=== PATIENT | female | born 1990 | race Hispanic/Latino ===

== ENCOUNTER 2018-09-05 21:49 | Inpatient (IN) | payer OTHER ==
[2018-09-05 21:59] VITALS: BMI 20.5
--- NOTE | 2018-09-05 22:09 | ED PDOC ---
Arrival/HPI - General Time Seen by Provider: 09/05/18 21:51 Historian: Patient - History of Present Illness Narrative History of Present Illness (Text): 28 year old female, whose past medical history includes depression, who presents to the ED transferred from [facility] for suicidal ideation/psychiatric admission. Patient was medically cleared at previous institution and accepted for psychiatric admission by psychiatrist airline reservationist. Patient denies any HI, hallucinations, substance abuse, fever, chills, chest pain, shortness of breath, nausea, vomiting, diarrhea, urinary symptoms, back pain, neck pain, headache, dizziness, or any other somatic complaints. Symptom Onset: Gradual Symptom Course: Unchanged Activities at Onset: Light Context: Other (transferred) Past Medical History - Provider Review Nursing Documentation Reviewed: Yes - Psychiatric Hx Psychophysiologic Disorder: Yes Hx Anxiety: Yes Hx Depression: Yes Hx Substance Use: No Family/Social History - Physician Review Nursing Documentation Reviewed: Yes Family/Social History: Unknown Family HX Smoking Status: Never Smoked Hx Alcohol Use: Yes Frequency of alcohol use: Socially Hx Substance Use: No Allergies/Home Meds Allergies/Adverse Reactions: Allergies No Known Allergies Allergy (Verified 09/05/18 22:43) Home Medications: Home Meds Medication Instructions Recorded Confirmed No Known Home Med 09/05/18 09/05/18 Review of Systems - Physician Review All systems were reviewed & negative as marked: Yes - Review of Systems Constitutional: Normal. absent: Fevers Eyes: Normal. absent: Vision Changes ENT: Normal. absent: Sore Throat, Sinus Congestion Respiratory: Normal. absent: SOB, Cough Cardiovascular: Normal. absent: Chest Pain Gastrointestinal: Normal. absent: Abdominal Pain, Diarrhea, Nausea, Vomiting Genitourinary Female: Normal. absent: Dysuria, Frequency, Hematuria, Urine Output Changes Musculoskeletal: Normal. absent: Back Pain, Neck Pain Skin: Normal. absent: Rash Neurological: Normal. absent: Headache, Dizziness Endocrine: Normal Hemo/Lymphatic: Normal Psychiatric: Depression, Suicidal Ideation Physical Exam Vital Signs Reviewed: Yes Vital Signs Temp Pulse Resp BP Pulse Ox 09/05/18 21:59 98.3 F 77 19 121/71 99 Temperature: Afebrile Blood Pressure: Normal Pulse: Regular Respiratory Rate: Normal Appearance: Positive for: Non-Toxic, Other (Tearful) Pain Distress: None Mental Status: Positive for: Alert and Oriented X 3 - Systems Exam Head: Present: Atraumatic, Normocephalic Pupils: Present: PERRL Extroacular Muscles: Present: EOMI Conjunctiva: Present: Normal Mouth: Present: Moist Mucous Membranes Neck: Present: Normal Range of Motion. No: Meningeal Signs Respiratory/Chest: Present: Clear to Auscultation, Good Air Exchange. No: Respiratory Distress, Accessory Muscle Use Cardiovascular: Present: Regular Rate and Rhythm, Normal S1, S2 Abdomen: Present: Normal Bowel Sounds. No: Tenderness, Distention, Peritoneal Signs Back: Present: Normal Inspection. No: CVA Tenderness Upper Extremity: Present: Normal Inspection, Normal ROM, NORMAL PULSES, Neurovascularly Intact, Capillary Refill < 2s. No: Cyanosis, Edema, Temperature Abnormalties Lower Extremity: Present: Normal Inspection, NORMAL PULSES, Normal ROM, Neurovascularly Intact, Capillary Refill < 2 s. No: Edema, Temperature Abnormalties Neurological: Present: GCS=15, CN II-XII Intact, Speech Normal, Motor Func Grossly Intact, Normal Sensory Function, Gait Normal Skin: Present: Warm, Dry, Normal Color. No: Rashes Psychiatric: Present: Alert, Oriented x 3, Depressed Mood, Suicidal Ideation Medical Decision Making ED Course and Treatment: 09/05/18 22:07 Reviewed diagnostic testing, CXR, EKG sent from [facility]. Pt has no somatic complaints. Physical exam normal. Vitals stable. Patient is medically cleared for psychiatric admission. Placed on 1:1 observation in ED. - Scribe Statement The provider has reviewed the documentation as recorded by the Kike Mcdaniel Provider Scribe Attestation: All medical record entries made by the Scribe were at my direction and personally dictated by me. I have reviewed the chart and agree that the record accurately reflects my personal performance of the history, physical exam, medical decision making, and the department course for this patient. I have also personally directed, reviewed, and agree with the discharge instructions and disposition. Disposition/Present on Arrival - Present on Arrival Any Indicators Present on Arrival: No History of DVT/PE: No History of Uncontrolled Diabetes: No Urinary Catheter: No History of Decub. Ulcer: No History Surgical Site Infection Following: None - Disposition Have Diagnosis and Disposition been Completed?: Yes Diagnosis: MDD (major depressive disorder) Disposition: HOSPITALIZED Disposition Time: 22:10 Patient Plan: Admission Patient Problems: Current Active Problems Problem Status Onset MDD (major depressive disorder) Acute Opioid abuse, in remission Acute Condition: STABLE
[2018-09-05] MEDS ORDERED: Magnesium Hydroxide Susp 30 ml UD PO PRN (23:12)
[2018-09-05] MEDS ORDERED: Alum-Mag Hydrox-Simethicone Susp (30 mL) PO PRN (23:12)
--- NOTE | 2018-09-05 23:26 | PCM.BM ---
<HenriChristy - Last Filed: 09/05/18 23:23> Treatment Plan Problems - Problems identified on initial assessmt Suicidal Ideation Date Initiated: 09/05/18 Time Initiated: 23:24 Assessment reference: NA Status: Active Hopelessness/Helplessness Date Initiated: 09/05/18 Time Initiated: 23:24 Assessment reference: NA Status: Active Ineffective Coping Date Initiated: 09/05/18 Time Initiated: 23:25 Assessment reference: NA Status: Active Altered Sleep Pattern Date Initiated: 09/05/18 Time Initiated: 23:25 Assessment reference: NA Status: Active Treatment assets and liabiliti Patient Assests: adapts well, cooperative, educated, insightful, motivated, ADL independent, cognitively intact Patient Liabilities: live alone, financial problems - Milieu Protocol Maintain good personal hygiene: every shift Encourage regular showers, every shift Remind patient to perform daily oral care, every shift Assist patient to perform ADL's Maintain personal safety: daily Educate patient to report safety concerns to staff, daily Monitor environment for contraband/sharps Medication safety: Monitor for expected outcome, potential side effects: daily, Assess barriers to learning: daily, Assess readiness for medication education: daily Family Contact Family contact: Family has been contacted by patient <Delma Lopez - Last Filed: 09/06/18 08:41> - Diagnosis (1) MDD (major depressive disorder) Status: Acute Interventions: 09/06/18 08:42 Psychoeducation Psychopharmacology/adjustment of medications as needed/ monitoring possible side effects Evaluate pt on daily basis Compliance with medications and follow up appointments Suicide and homicide risk assessment and prevention Relapse prevention Reduction of symptoms Improve functional status Family involvement As outpatient: cognitive behavioral therapy (2) Opioid abuse, in remission Status: Acute Interventions: 09/06/18 08:42 relapse prevention AA meetings <Mali Rodriges - Last Filed: 09/07/18 11:22> Family Contact Family involvement: Family/SO is involved Family contact: Family has been contacted by patient <Zuleika Rojo - Last Filed: 09/07/18 12:15>
[2018-09-05 23:56] VITALS: O2SAT 97
[2018-09-06 08:19] LABS: GLUCOSE,FASTING 75 mg/dL (65-110); HDL CHOLESTEROL 40 mg/dL (29-60)
[2018-09-06 08:31] LABS: LDL CHOLESTEROL 99 mg/dL (0-129)
--- NOTE | 2018-09-06 14:53 | PCM.PSYCH ---
Initial Psychiatric Evaluation - Initial Psychiatric Evaluation Type of Admission: Voluntary Legal Status: Capacity Chief Complaint (in patient's own words): "I was self-medicating by using hearing, I am sober for past 1-1/2 months, as a result my depression became really bad, my boyfriend brought me to the hospital because I was having bad thoughts..." Patient's Reaction to Hospitalization: Patient was transferred from [facility] for evaluation of depression, possible suicidal ideation with a plan to crash her car. History of Present Illness and Precipitating Events: Patient is 28-year-old female, self-reported history of depression and two psychiatric admissions, two possible suicidal attempts, patient was transferred from [facility] where she presented with her boyfriend for evaluation of depression, possible suicidal ideation with a plan to kill self by crashing her car. Transfer was uneventful, patient requires further evaluation stabilization and observation. Patient was seen today at the treatment team meeting with medical student, patient presented with poor personal hygiene, appears with flat and tearful affect, good ADLs. Patient reported that she had a long history of opioid abuse, she started using hearing at the age of 22, patient had 3 years of sobriety but she relapsed on hearing 1-1/2 years ago, patient reported that for the past 1-1/2 months she is staying sober. As a result patient became more and more depressed, for the past 2 weeks, patient was not able to function, was feeling, hopeless, helpless, worthless, guilty, patient also reported that she had no energy, no motivation, patient reported that she is staying in bed all day long, patient reported prior to come to the hospital her boyfriend was very concerned about her safety because patient had suicidal ideation with a plan to crash her car, "I was not able to drive by myself, I did not trust myself, if nobody would be is there I would probably kill myself." Patient contracted for safety, reported that she feels comfortable, patient reported if she would have suicidal ideation she will reach out for help. Patient reported that she was feeling anxious, for the past 2 weeks she had frequent panic attacks where she would be feeling extremely anxious, difficulty to breathe, mind racing, fear of losing control and going crazy, not panic attacks would last for about 15 to 20 minutes. Patient denies history of being abused, denies any PTSD symptoms, denied generalized anxiety disorder symptoms. Patient had questionable manic/hypomanic episodes where she would be feeling jen y irritable, mind racing, difficulties to stay focus, difficulties to complete the task, lack of sleep, feeling energetic. Patient denies hearing voices, denies seeing things, denies paranoid ideations, patient does not present to be psychotic. Patient smokes about 1 pack a day, counseling provided, patient was receptive, nicotine patch offered. Past psychiatric history: Patient had history of 2 psychiatric admissions in 2010 status post overdose on medications, 2013 patient had suicidal ideation but denied any intent, usually patient stayed in the hospital for 7 to 10 days. Patient reported that she was diagnosed with major depressive disorder, patient was tried on Celexa "I did not like that medication", patient was on Cymbalta, "I was doing relatively fine on Cymbalta". Family history: Patient denied Medical history: Patient denies any medical history besides shoulder pain, for what pt claimed to be on percocet 3-5 days ago. pt denied any recent use of drugs, denied withdrawal symptoms. UDS was positive for opioids. Social history: Patient lives with her boyfriend, in [place], works as a server assistant in [employer]. as per RN report Patient states she is currently on Pr e-trial intervention for possession of drugs. Patient's goal for treatment "to be okay, eventually I would like to start my own family, I want to be clean, to get , kids" Lab Results 09/06/18 07:45: TSH 3rd Generation 0.22 L 09/06/18 07:45: Fasting Glucose 75, Triglycerides 66, Cholesterol 152, LDL Cholesterol Direct 99, HDL Cholesterol 40 Vital Signs Temp Pulse Resp BP Pulse Ox 09/06/18 06:33 97.5 F L 66 14 103/60 09/05/18 23:55 97.9 F 79 18 103/68 97 09/05/18 21:59 98.3 F 77 19 121/71 99 The patient failed the outpatient lower level of care: Yes Current Medications: Active Medications Generic Name Dose Route Start Last Admin Trade Name Freq PRN Reason Stop Dose Admin Acetaminophen 650 mg 09/05/18 23:12 Tylenol 325mg Tab PO Q6H PRN Pain, moderate (4-7) Al Hydrox/Mg Hydrox/Simethicone 30 ml 09/05/18 23:12 Maalox Plus 30 Ml PO DAILY PRN Indigestion / Heartburn Clonazepam 0.5 mg 09/05/18 23:12 Klonopin PO Q8 PRN Anxiety Protocol Magnesium Hydroxide 30 ml 09/05/18 23:12 Milk Of Magnesia PO DAILY PRN Constipation Zaleplon 10 mg 09/05/18 23:12 09/05/18 23:36 Sonata PO 10 mg HS PRN Administration Insomnia Present on Admission - Present on Admission Any Indicators Present on Admission: No History of Uncontrolled Diabetes: No Urinary Catheter: No Decubitus Ulcer Present: No Review of Systems - Review of Systems Systems not reviewed;Unavailable: Acuity of Condition - Constitutional Constitutional: As Per HPI - EENT Eyes: As Per HPI Ears: As Per HPI Nose/Mouth/Throat: As Per HPI - Breasts Breasts: As Per HPI - Cardiovascular Cardiovascular: As Per HPI - Respiratory Respiratory: As Per HPI - Gastrointestinal Gastrointestinal: As Per HPI - Genitourinary Genitourinary: As Per HPI - Reproductive: Female Reproductive:Female: As Per HPI - Menstruation Menstruation: As Per HPI - Musculoskeletal Musculoskeletal: As Per HPI - Integumentary Integumentary: As Per HPI - Neurological Neurological: As Per HPI - Psychiatric Psychiatric: As Per HPI - Endocrine Endocrine: As Per HPI - Hematologic/Lymphatic Hematologic: As Per HPI Past Patient History - Past Psychiatric History Previous Treatment History: Inpatient Prior Professional Help: See HPI Prior Psychiatric Treatment: See HPI At what hospital: See HPI Duration: See HPI Nature of Treatment: See HPI Explanation of prior treatment: See HPI - PSYCHIATRIC Hx Psychophysiologic Disorder: Yes Hx Anxiety: Yes Hx Depression: Yes Hx Substance Use: Yes (heroin) - CARDIAC Hx Cardiac Disorders: No - PULMONARY Hx Respiratory Disorders: No - NEUROLOGICAL Hx Migraine: Yes - HEENT Hx HEENT Problems: No - RENAL Hx Chronic Kidney Disease: No - ENDOCRINE/METABOLIC Hx Endocrine Disorders: No - HEMATOLOGICAL/ONCOLOGICAL Hx Blood Disorders: No - INTEGUMENTARY Hx Dermatological Problems: No - MUSCULOSKELETAL/RHEUMATOLOGICAL Hx Musculoskeletal Disorders: No - GASTROINTESTINAL Hx Gastrointestinal Disorders: No - GENITOURINARY/GYNECOLOGICAL Hx Genitourinary Disorders: No - SURGICAL HISTORY Hx Surgeries: No - ANESTHESIA Hx Anesthesia: No - Medical/Surgical History Reviewed & confirmed: by nv Meds Allergies/Adverse Reactions: Allergies Allergy/AdvReac Type Severity Reaction Status Date / Time No Known Allergies Allergy Verified 09/05/18 22:43 Mental Status Examination - Personal Presentation Personal Presentation: Looks stated age - Affect Affect: Constricted (And tearful), Flat - Motor Activity Motor Activity: Calm - Reliability in Providing Information Reliability in Providing Information: Fair - Speech Speech: Organized - Mood Mood: Depressed, Anxious - Formal Thought Process Formal Thought Process: No Impairment - Obsessions/Compulsions Obsessions: No Compulsions: No - Cognitive Functions Orientation: Person, Place, Situation, Time Sensorium: Alert Attention/Concentration: Easily distracted Estimate of Intelligence: Average Judgement: Intact, as evidence by: Insight regarding need for hospitalization - Risk Risk: Suicidal, Self-mutilation, Diminished functioning - Strength & Assets Inventory Strength & Assets Inventory: Intelligence, Family support, Education, Employment status, Employment history, Skills, Life experience, Cooperative - Limitations Limitations: Other (Suicidal ideation) Psychiatric Physical Exam - Physical Exam Reviewed and confirmed: Emergency Department Physical Exam Results - Vital Signs Recent Vital Signs: Last Vital Signs Temp 97.5 F L 09/06/18 06:33 Pulse 66 09/06/18 06:33 Resp 14 09/06/18 06:33 BP 103/60 09/06/18 06:33 Pulse Ox 97 09/05/18 23:55 - Labs Labs: Laboratory Results - last 24 hr 09/06/18 07:45 Fasting Glucose 75 Triglycerides 66 Cholesterol 152 LDL Cholesterol Direct 99 HDL Cholesterol 40 - EKG Data EKG Interpreted by: ER Physician DSM Plan - DSM 5 DSM 5 Diagnosis: Rule out bipolar spectrum disorder, bipolar type II Rule out panic disorder Rule out panic disorder Opioid use disorder - Recommended/Plan of Treatment Treatment Recommendations and Plan of Treatment: Milieu/structure/supportive therapy SW consultation for discharge plan and social issues Med management Prozac 10 mg for depression anxiety Vistaril 50 mg 3 times a day as needed for anxiety Abilify 2.5 mg at nighttime for mood stabilization Sonata 5 mg as needed for insomnia Family involvement Follow up on labs Will monitor closely Pt was educated about risk/benefits and alternatives of medications, coping strategies (safety plan, suicide prevention), relapse prevention, importance of follow up with psychiatrist and therapist, stay away from drugs/alcohol/smoking Projected ELOS: 7 days Prognosis: Fair Discharge Plan and Discharge Criteria: Patient will pose no imminent danger to self or others - Tobacco Cessation Tobacco Use Status for the last 30 days: Heavy User(>=5 cigs &/or cigars/pipes daily) Tobacco Use Treatment Practical Counseling Provided: Yes Tobacco Use Treatment FDA-Approved Cessation Medication Provided: Yes - Alcohol or Substance Abuse Does the patient have an Alcohol or Substance Abuse Disorder: Yes Initial Psych Certification - Initial Certification I certify that the inpatient psychiatric facility admission was medically necessary for either: Treatment which could reasonbly be expected to improve pt's condition I estimate of hospitalization is necessary for proper treatment of the patient: 7 Unit of Time: Days My plans for post-hospital care for this patient are: AA meetings dual diagnosis program
--- NOTE | 2018-09-07 14:35 | PCM.PYCHPN ---
Psychiatric Progress Note - Psychiatric Progress Note Patient seen today, length of contact: 30min Patient Chief Complaint: "I didn't sleep...' Problems Identified/Issues Discussed: medications/risk/benefits and alternatives, possible opioid withdrawals, coping strategies, aftercare plan. Medical Problems: pt most likely withdrawing from opioids, but denied Diagnostic Results: Lab Results 09/06/18 07:45: RPR Nonreactive 09/06/18 07:45: TSH 3rd Generation 0.22 L 09/06/18 07:45: Fasting Glucose 75, Triglycerides 66, Cholesterol 152, LDL Cholesterol Direct 99, HDL Cholesterol 40 Vital Signs Temp Pulse Resp BP Pulse Ox 09/07/18 06:39 97.7 F 76 16 97/60 L 09/06/18 16:00 78 100/68 09/06/18 06:33 97.5 F L 66 14 103/60 09/05/18 23:55 97.9 F 79 18 103/68 97 09/05/18 21:59 98.3 F 77 19 121/71 99 DSM 5 Symptoms Update: Patient is 28-year-old female, self-reported history of depression and two psychiatric admissions, two possible suicidal attempts, patient was transferred from [facility] where she presented with her boyfriend for evaluation of depression, possible suicidal ideation with a plan to kill self by crashing her car. Transfer was uneventful, patient requires further evaluation stabilization and observation. Patient was seen today at the treatment team meeting with medical student, patient presented with poor personal hygiene, appears with flat and tearful affect, good ADLs. pt presented with goosebumps, shaking, has some rhinorrhea, c/o "upset stomach" seems to be withdrawing from opioids, but pt denied, this song writer still ordered clonidine, tramadol, zofran, was advised to take medications. pt reported restless night, pt said that she was feeling very restless, pt was educated about trazodone, risk benefits and alternatives discussed. pt reported to feel "little better", but still has periods of hopelessness. pt still presented to be depressed. pt denied thoughts of harming self or others. pt is not psychotic. as per staff pt is self isolating, not participating in unit activities, pt is disengaged, depressed. Impression: MDD, recurrent, severe, not psychotic r/o opioid withdrawal opioid use disorder Medication Change: Yes (prozac increased, PRN, trazodone started) Medical Record Reviewed: Yes Consults ordered or reviewed: pt was cleared by medical team in ED Mental Status Examination - Cognitive Function Orientation: Person, Place, Situation, Time Memory: Intact Attention: Poor Concentration: Poor Association: WNL Fund of Knowledge: WNL - Mood Mood: Depressed, Anxious - Affect Affect: Constricted (And tearful), Flat - Formal Thought Process Formal Thought Process: No Impairment - Suicidal Ideation Suicidal Ideation: No - Homicidal Ideation Homicidal Ideation: No Goal/Treatment Plan - Goal/Treatment Plan Need for Continued Stay: Remain at risks for inpatient hospitalization, Severe depression anxiety, Discharge may exacerbated symptoms, Severe functional impairment Progress Toward Problem(s) and Goals/Treatment Plan: Milieu/structure/supportive therapy SW consultation for discharge plan and social issues Med management Prozac 20 mg for depression anxiety Vistaril 50 mg 3 times a day as needed for anxiety Abilify 2.5 mg at nighttime for mood stabilization Sonata d/c trazodone 50mg hs for depression and insomnia symptomatic tx for possible opioid withdrawal Family involvement Follow up on labs Will monitor closely Pt was educated about risk/benefits and alternatives of medications, coping strategies (safety plan, suicide prevention), relapse prevention, importance of follow up with psychiatrist and therapist, stay away from drugs/alcohol/smoking Estimated Date of D/C: 09/13/18
--- NOTE | 2018-09-08 08:58 | PCM.PYCHPN ---
Psychiatric Progress Note - Psychiatric Progress Note Patient seen today, length of contact: 30min Problems Identified/Issues Discussed: Patient is 28-year-old female, history of depression, two psychiatric admissions, two possible suicidal attempts, who was transferred from [facility] where she presented with her boyfriend for evaluation of depression, possible suicidal ideation with a plan to kill self by crashing her car. Patient has been fairly cooperative on the unit. Treatment has been complicated by opioid withdrawal symptoms which appear to be improving. She is well-oriented and superficially bright and cooperative during my visit. Patient reports her mood as "okay" and denies any new concerns. She appears fairly related and coherent without any evidence of psychosis. Patient is tolerating her medications and denies new discomfort or pain. She doesn't appear to be in any physical distress. She indicates her sleep was "all right" and also denies any concerns in this regard. Staff reports indicate that patient still keeps mostly to herself however there are only five patients on the unit and two of them are psychotic males. There were no behavioral issues overnight. Diagnostic Results: Rule out bipolar spectrum disorder, bipolar type II Rule out panic disorder Rule out panic disorder Opioid use disorder Medication Change: No ( ) Medical Record Reviewed: Yes Mental Status Examination - Cognitive Function Orientation: Person, Place, Situation, Time Memory: Intact Attention: Poor Concentration: Poor Association: WNL Fund of Knowledge: WNL - Mood Mood: Depressed, Anxious - Affect Affect: Constricted (And tearful), Flat - Formal Thought Process Formal Thought Process: No Impairment - Suicidal Ideation Suicidal Ideation: No - Homicidal Ideation Homicidal Ideation: No Goal/Treatment Plan - Goal/Treatment Plan Need for Continued Stay: Remain at risks for inpatient hospitalization, Severe depression anxiety, Discharge may exacerbated symptoms, Severe functional impairment Progress Toward Problem(s) and Goals/Treatment Plan: * c/w current tx and plan * No new lab results thus far this weekend * Vitals reviewed and noted below: Selected Entries 09/07/18 09/07/18 06:39 17:38 Temperature 97.7 F Pulse Rate 76 79 Respiratory 16 Rate Blood Pressure 97/60 L 100/64 Estimated Date of D/C: 09/13/18
--- NOTE | 2018-09-09 08:37 | PCM.PYCHPN ---
Psychiatric Progress Note - Psychiatric Progress Note Patient seen today, length of contact: 30min Problems Identified/Issues Discussed: Patient is 28-year-old female, history of depression, two psychiatric admissions, two possible suicidal attempts, who was transferred from [facility] where she presented with her boyfriend for evaluation of depression, possible suicidal ideation with a plan to kill self by crashing her car. Patient has been fairly cooperative and calm on the unit. Treatment and progress has been complicated by opioid withdrawal symptoms which appear to be improving. She still has bouts of nausea and anxiety requiring prn ultran and vistaril on Monday. Nonetheless she is well-oriented, superficially bright and cooperative during my visits. Patient reports her mood as "okay" and denies any new concerns or side effects except for ongoing bouts of nausea, malaise and low appetite. She indicates her sleep was restless due to withdrawal symptoms. She appears fairly related and coherent without any evidence of psychosis. Staff reports indicate that patient still keeps mostly to herself however there are only five patients on the unit and two of them are psychotic males. There were no behavioral issues over the weekend. Diagnostic Results: Rule out bipolar spectrum disorder, bipolar type II Rule out panic disorder Rule out panic disorder Opioid use disorder Medication Change: Yes (increased trazodone) Medical Record Reviewed: Yes Mental Status Examination - Cognitive Function Orientation: Person, Place, Situation, Time Memory: Intact Attention: WNL Concentration: Poor Association: WNL Fund of Knowledge: WNL - Mood Mood: Depressed, Anxious - Affect Affect: Constricted (And tearful), Flat - Formal Thought Process Formal Thought Process: No Impairment - Suicidal Ideation Suicidal Ideation: No - Homicidal Ideation Homicidal Ideation: No Goal/Treatment Plan - Goal/Treatment Plan Need for Continued Stay: Remain at risks for inpatient hospitalization, Severe depression anxiety, Discharge may exacerbated symptoms, Severe functional impairment Progress Toward Problem(s) and Goals/Treatment Plan: * c/w current tx and plan * Increased trazodone to 100 mg po HS prn: off label for insomnia * No new lab results this weekend * Vitals reviewed and noted below: Selected Entries 09/08/18 09/08/18 08:10 15:57 Temperature 98.4 F Pulse Rate 88 65 Respiratory 20 Rate Blood Pressure 109/69 106/65 Estimated Date of D/C: 09/13/18
--- NOTE | 2018-09-10 17:36 | PCM.PYCHPN ---
Psychiatric Progress Note - Psychiatric Progress Note Patient seen today, length of contact: 30min Patient Chief Complaint: "I feel much better" Problems Identified/Issues Discussed: medications/risk/benefits and alternatives, possible opioid withdrawals, coping strategies, aftercare plan. Medical Problems: pt most likely withdrawing from opioids, but denied Diagnostic Results: Lab Results 09/06/18 07:45: RPR Nonreactive 09/06/18 07:45: TSH 3rd Generation 0.22 L 09/06/18 07:45: Fasting Glucose 75, Triglycerides 66, Cholesterol 152, LDL Cholesterol Direct 99, HDL Cholesterol 40 Vital Signs Temp Pulse Resp BP Pulse Ox 09/07/18 06:39 97.7 F 76 16 97/60 L 09/06/18 16:00 78 100/68 09/06/18 06:33 97.5 F L 66 14 103/60 09/05/18 23:55 97.9 F 79 18 103/68 97 09/05/18 21:59 98.3 F 77 19 121/71 99 DSM 5 Symptoms Update: Patient is 28-year-old female, self-reported history of depression and two psychiatric admissions, two possible suicidal attempts, patient was transferred from [facility] where she presented with her boyfriend for evaluation of depression, possible suicidal ideation with a plan to kill self by crashing her car. Transfer was uneventful, patient requires further evaluation stabilization and observation. Patient was seen today at the treatment team meeting, patient presented some improvements, patient reported that over the weekend she was feeling fine, patient reported no side effects from the medications, patient reported that her appetite and sleep are improved. Patient reported that her depression is under control right now, patient denied thoughts of harming herself or others, coping strategies/suicide prevention discussed. Patient requested to be discharged tomorrow, patient reported that her boyfriend is going to pick her up. No withdrawal symptoms. pt is not psychotic. as per staff pt is visible on the unit, pleasant, cooperative, socially appropriate. No agitation/no aggression. Impression: MDD, recurrent, severe, not psychotic r/o opioid withdrawal opioid use disorder Medication Change: Yes (Abilify increased) Medical Record Reviewed: Yes Consults ordered or reviewed: pt was cleared by medical team in ED Mental Status Examination - Cognitive Function Orientation: Person, Place, Situation, Time Memory: Intact Attention: Poor (Some improvement) Concentration: WNL Association: WNL Fund of Knowledge: WNL - Mood Mood: Depressed ("I feel much better"), Anxious ("I am not anxious") - Affect Affect: Constricted (But more reactive and mood congruent), Flat - Speech Speech: Appropriate - Formal Thought Process Formal Thought Process: No Impairment - Suicidal Ideation Suicidal Ideation: No - Homicidal Ideation Homicidal Ideation: No Goal/Treatment Plan - Goal/Treatment Plan Need for Continued Stay: Remain at risks for inpatient hospitalization, Severe depression anxiety, Discharge may exacerbated symptoms, Severe functional impairment Progress Toward Problem(s) and Goals/Treatment Plan: Milieu/structure/supportive therapy SW consultation for discharge plan and social issues Med management Prozac 20 mg for depression anxiety Vistaril 50 mg 3 times a day as needed for anxiety Abilify 5 mg daily for mood stabilization Sonata d/c trazodone 100mg hs for depression and insomnia symptomatic tx for possible opioid withdrawal Family involvement Follow up on labs Will monitor closely Pt was educated about risk/benefits and alternatives of medications, coping strategies (safety plan, suicide prevention), relapse prevention, importance of follow up with psychiatrist and therapist, stay away from drugs/alcohol/smoking Estimated Date of D/C: 09/13/18
[2018-09-11 06:34] VITALS: BP 99/64; PULSE 67; RESP 16; TEMP 98.6
--- NOTE | 2018-09-11 16:45 | PCM.PYCHDC ---
Mental Status Examination - Mental Status Examination Orientation: Person, Place, Situation, Time Memory: Intact Mood: Neutral Affect: Constricted (But reactive and mood congruent) Speech: Appropriate Attention: WNL Concentration: WNL Association: WNL Fund of Knowledge: WNL Formal Thought Process: No Impairment Description of patient's judgement and insight: Pt has improved insight into mental illness, addictions to drugs, pt was compliant with medications and unit rules and regulations, pt was going to groups, was calm, cooperative, socially appropriate, no behavioral incidents, no agitation, no aggression. Psychotic Thoughts and Behaviors: Pt denied v/a/t hallucinations, denied paranoid ideations, pt does not appear to be psychotic, and thought process is goal directed. Suicidal Ideation: No Current Homicidal Ideation?: No Plan: pt adamantly denied thoughts of harming self or others denied intent or plan. Discharge Summary - Discharge Note Reason for Hospitalization: Patient was transferred from [facility] for evaluation of depression, possible suicidal ideation with a plan to crash her car. Psychiatric History (includes Medical, Family, Personal Hx): See HPI Laboratory Data: Lab Results 09/06/18 07:45: RPR Nonreactive 09/06/18 07:45: TSH 3rd Generation 0.22 L 09/06/18 07:45: Fasting Glucose 75, Triglycerides 66, Cholesterol 152, LDL Cholesterol Direct 99, HDL Cholesterol 40 Vital Signs Temp Pulse Resp BP Pulse Ox 09/11/18 06:33 98.6 F 67 16 99/64 L 09/10/18 16:00 64 109/74 09/10/18 06:57 98.1 F 63 20 113/74 09/09/18 16:00 69 109/71 09/09/18 07:00 98.1 F 73 18 110/71 09/08/18 15:57 65 106/65 09/08/18 08:10 98.4 F 88 20 109/69 09/07/18 17:38 79 100/64 09/07/18 06:39 97.7 F 76 16 97/60 L 09/06/18 16:00 78 100/68 09/06/18 06:33 97.5 F L 66 14 103/60 09/05/18 23:55 97.9 F 79 18 103/68 97 09/05/18 21:59 98.3 F 77 19 121/71 99 Consultations:: List each consultation separately and include: 1. Reason for request. 2. Findings. 3. Follow-up Consultations: pt was cleared by medical team in ED, see notes for more detailed info Summary of Hospital Course include:: 1. Description of specific treatment plan utilized for patients during their course of treatmen. 2. Summarize the time- course for resolution of acute symptoms and/or regressed behaviors. 3. Describe issues identified and worked on during hospitalization. 4. Describe medication utilized. 5. Describe medical problems identified and treated. 6. Reassessment of suicide risk Summary of Hospital Course: Patient is 28-year-old female, self-reported history of depression and two psychiatric admissions, two possible suicidal attempts, patient was transferred from [facility] where she presented with her boyfriend for evaluation of depression, possible suicidal ideation with a plan to kill self by crashing her car. Transfer was uneventful, patient requires further evaluation stabilization and observation. At the time of initial evaluation patient presented to be depressed, affect was tearful, patient expressed no motivation, was feeling hopeless and helpless. Please see admission notes for more detailed information. Patient was stabilized on the following medications: Lab Results 09/06/18 07:45: TSH 3rd Generation 0.22 L 09/06/18 07:45: Fasting Glucose 75, Triglycerides 66, Cholesterol 152, LDL Cholesterol Direct 99, HDL Cholesterol 40 Vital Signs Temp Pulse Resp BP Pulse Ox 09/06/18 06:33 97.5 F L 66 14 103/60 09/05/18 23:55 97.9 F 79 18 103/68 97 09/05/18 21:59 98.3 F 77 19 121/71 99 Abilify 5 mg daily for mood stabilization Prozac 20 mg daily for depression and anxiety Vistaril as needed for anxiety Trazodone 100 mg at the nighttime for insomnia as well as depression Patient tolerated medications well, no side effects observed or reported, aims 0, no EPS. Patient had some questionable withdrawal from opioids and for that patient had symptomatic treatment such as clonidine/Klonopin/tramadol/Zofran, pt denied using drugs prior to come to the hospital. Patient had therapeutic milieu, medication management, supportive therapy, motivational interviewing, patient was visible on the unit, no aggression, no agitation, patient's insight improved into her mental illness as well as addition to drugs, overall patient improved, reached maximum effect from this hospitalization, seems to be ready for discharge. Patient was offered inpatient rehabilitation but patient declined at home. Overall pt improved significantly, pt's affect became brighter, pt was less depressed, has realistic future oriented plans, pt also does not appear to be psychotic, or anxious, pt was socially appropriate. At the time of the discharge patient was considered to pose no imminent danger to self or others, will be following up at dual diagnosis program, information about follow up appointment, time and address provided to the pt, (see SW note for more detailed information). It is a patient responsibility to follow up with outpatient clinic, PMD as well as specialists In case patient will need to obtain results of studies pending at discharge, patient was provided with contact information of Psychiatric Inpatient unit [phone] as well as Medical Record Department [phone], as well as [facility] team [phone]. Nicotine patch was provided Naltrexone treatment is not indicated, UDS was positive for opioids AA meetings as well as smoking cessation treatment program information was provided by the pt was provided with prescriptions see medication reconciliation form Pt was educated about safety plan in case of worsening of symptoms or in case of suicidal or homicidal ideation call 911 or go to the nearest ER, also was educated to take meds as prescribed and stay away from drugs, pt verbalized understanding. - Diagnosis (1) MDD (major depressive disorder) Status: Acute Priority: High (2) Opioid abuse, in remission Status: Chronic Priority: Medium - Final Diagnosis (DSM 5) Condition upon Discharge: STABLE Disposition: HOME/ ROUTINE Follow-up Treatment Plan: At the time of the discharge patient was considered to pose no imminent danger to self or others, will be following up at dual diagnosis program, information about follow up appointment, time and address provided to the pt, (see SW note for more detailed information). It is a patient responsibility to follow up with outpatient clinic, PMD as well as specialists In case patient will need to obtain results of studies pending at discharge, patient was provided with contact information of Psychiatric Inpatient unit [phone] as well as Medical Record Department [phone], as well as [facility] team [phone]. Nicotine patch was provided Naltrexone treatment is not indicated, UDS was positive for opioids AA meetings as well as smoking cessation treatment program information was provided by the [facility] pt was provided with prescriptions see medication reconciliation form Pt was educated about safety plan in case of worsening of symptoms or in case of suicidal or homicidal ideation call 911 or go to the nearest ER, also was educated to take meds as prescribed and stay away from drugs, pt verbalized unde rstanding. Prescriptions/Medication Reconciliation: ARIPiprazole [Abilify] 5 mg PO DAILY #14 tab FLUoxetine [Prozac] 20 mg PO DAILY #30 cap hydrOXYzine Pamoate [Vistaril] 50 mg PO BID PRN #60 cap PRN Reason: Anxiety Nicotine 21 mg/24 hr [Nicoderm Cq] 1 patch TD DAILY #30 patch traZODone [Desyrel] 100 mg PO HS #30 tab - Smoking Cessation Smoking Cessation Medication prescribed: Yes - Antipsychotic Medications Pt discharged on 2 or more routine antipsychotic medications: No
== END 2018-09-11 15:35 | disposition home or self-care (01) ==
LOC: ED 21:49 → ERH 22:06 → PSYC 22:28
PROVIDERS: ADMIT Psychiatry & Neurology Psychiatry; ATTEND Psychiatry & Neurology Psychiatry
DX: F33.2 Major depressive disorder, recurrent severe without psychotic features (principal); F11.23 Opioid dependence with withdrawal; R45.851 Suicidal ideations; F17.210 Nicotine dependence, cigarettes, uncomplicated; F41.0 Panic disorder [episodic paroxysmal anxiety]; F41.8 Other specified anxiety disorders; G47.00 Insomnia, unspecified